=== PATIENT | female | born 1935 | race Caucasian/White ===

== ENCOUNTER → 2018-12-10 | Outpatient (CLI) | payer OTHER ==
[~2018-12-10] MED LIST: ANTIBIOTIC; ASACOL400 MG PO; ASPIR 8181 MG PO; BENTYL10 MG PO; CLARITIN10 MG PO; EVISTA PO; FLAX OIL1000 MG PO; FLONASE NS; GLYCOPYRROLATE PO; HYDROCODON-ACE1 EAC8 PO; MOBIC7.5 MG PO; MUCINEX DM TABL1 TA1 PO; PANTOPRAZOLE SO40 M1 PO; PERCOCET 10-321 EACH PO; PRILOSEC 20 MG20 MG PO; SIMVASTATIN40 MG PO; TIROSINT75 MCG PO; TOPROL XL50 MG PO; VICODIN 5-5001 EACH PO; ZOCOR 20 MG TAB20 M1 PO; [UNRECOGNIZED DRUG - OTHER] PO
== END ==
LOC: HYPER 12-09 11:37
DX: S00.03XA Contusion of scalp, initial encounter (principal); E78.5 Hyperlipidemia, unspecified; E07.89 Other specified disorders of thyroid; I10 Essential (primary) hypertension; K21.9 Gastro-esophageal reflux disease without esophagitis; M81.0 Age-related osteoporosis without current pathological fracture; J44.9 Chronic obstructive pulmonary disease, unspecified; F03.90 Unspecified dementia, unspecified severity, without behavioral disturbance, psychotic disturbance, mood disturbance, and anxiety; F41.9 Anxiety disorder, unspecified; Z79.82 Long term (current) use of aspirin; Z87.891 Personal history of nicotine dependence; W19.XXXA Unspecified fall, initial encounter; Y93.89 Activity, other specified; Y92.89 Other specified places as the place of occurrence of the external cause; Y99.8 Other external cause status

== ENCOUNTER → 2018-12-17 | Outpatient (CLI) | payer OTHER | LOC: HYPER 07:00 | DX: S00.03XA Contusion of scalp, initial encounter (principal); L84 Corns and callosities; E78.5 Hyperlipidemia, unspecified; I10 Essential (primary) hypertension; K21.9 Gastro-esophageal reflux disease without esophagitis; M54.9 Dorsalgia, unspecified; G89.29 Other chronic pain; M81.0 Age-related osteoporosis without current pathological fracture; J44.9 Chronic obstructive pulmonary disease, unspecified; F03.90 Unspecified dementia, unspecified severity, without behavioral disturbance, psychotic disturbance, mood disturbance, and anxiety; F41.9 Anxiety disorder, unspecified; Z87.891 Personal history of nicotine dependence; Z79.82 Long term (current) use of aspirin; Z91.81 History of falling; X58.XXXA Exposure to other specified factors, initial encounter; Y93.89 Activity, other specified; Y92.89 Other specified places as the place of occurrence of the external cause; Y99.8 Other external cause status ==

== ENCOUNTER → 2018-12-24 | Outpatient (CLI) | payer OTHER | LOC: HYPER 06:18 | DX: S00.03XD Contusion of scalp, subsequent encounter (principal); E78.5 Hyperlipidemia, unspecified; E07.89 Other specified disorders of thyroid; I10 Essential (primary) hypertension; J44.9 Chronic obstructive pulmonary disease, unspecified; K21.9 Gastro-esophageal reflux disease without esophagitis; M81.0 Age-related osteoporosis without current pathological fracture; F03.90 Unspecified dementia, unspecified severity, without behavioral disturbance, psychotic disturbance, mood disturbance, and anxiety; F41.9 Anxiety disorder, unspecified; Z79.82 Long term (current) use of aspirin; Z87.891 Personal history of nicotine dependence; W19.XXXD Unspecified fall, subsequent encounter ==